=== PATIENT | female | born 1970 | race Caucasian/White ===

== ENCOUNTER → 2022-08-07 | Emergency (ER) | payer BC ==
[~2022-08-07] VITALS: Ht 165.1 cm; Wt 72.6 kg
[~2022-08-07] MED LIST: AMBIEN10 MG PO; KETO10TA2 PO
== END | disposition home or self-care (01) ==
LOC: ER 14:14
DX: S52.091A Other fracture of upper end of right ulna, initial encounter for closed fracture (principal); W18.39XA Other fall on same level, initial encounter; Y93.89 Activity, other specified; Y92.89 Other specified places as the place of occurrence of the external cause; Y99.9 Unspecified external cause status